=== PATIENT | male | born 1960 ===

== ENCOUNTER → 2023-12-31 00:58 | Outpatient (CLI) | payer OTHER, SELFPAY ==
--- NOTE | 2023-12-31 | DI.MRI_ITS ---
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 TECHNIQUE: Multiplanar multisequence MRI of the brain and internal auditory canals was performed. CONTRAST MATERIAL: IV Contrast: 14 mL of Dotarem contrast administered. COMPARISON: No exams were available for comparison FINDINGS: VENTRICLES AND EXTRA AXIAL SPACES: Normal in size and morphology for the patient's age. HEMORRHAGE: On the gradient images, there are 2 round well-circumscribed small black dots in the righ t cerebellum. CEREBRAL PARENCHYMA: No focus of restricted diffusion to suggest acute infarct. No space-occupying le mansi identified. There are multiple foci of hyperintense signal seen in the white matter on the FLAIR and T2 weighted images. This may reflect chronic microvascular ischemic disease. MIDLINE SHIFT: None. BRAINSTEM/CEREBELLUM: Normal. CALVARIUM: Normal. ENHANCEMENT: No suspicious enhancement identified. VISUALIZED PARANASAL SINUSES/MASTOIDS: There is mucosal thickening seen in the right sphenoid sinus a nd several ethmoid air cells. [place] G[place]: Normal flow void. PITUITARY GLAND: Unremarkable. IAC/CP ANGLE: The internal auditory canals are within normal limits. The cerebellar pontine angles ar e unremarkable. No enhancing lesions are seen. Visualized portion of the facial nerves appear within normal limits. The vestibular aqueducts appear symmetric and within normal limits bilaterally. OTHER FINDINGS: None. IMPRESSION: 1. No evidence of an acute infarct, intracranial mass or enhancing lesion. 2. Multiple foci of hyperintense signal seen in the white matter on the FLAIR and T2 weighted images. This likely reflects chronic microvascular ischemic disease. 3. On the gradient images, there are 2 well-circumscribed circumscribed small black dots in the right cerebellum. This can be seen with vascular malformations, old hemorrhagic infarct, cerebral amyloid angiopathy or traumatic injury. 4. No evidence of a mass or enhancing lesion in the cerebellopontine angles are IAC's. DATA REPOSITORY:
[2023-12-31] MEDS: Gadoterate meglumine 20 ML SYRINGE IVP (10:49)
[2023-12-31] MEDS: Normal Saline Flush 10 ML SYR IJ (10:50)
== END ==
PROVIDERS: Visit Provider Nurse Practitioner Family
DX: H81.02 Meniere's disease, left ear (principal); H90.5 Unspecified sensorineural hearing loss
CPT/HCPCS: 70553